=== PATIENT | male | born 1940 | race African-American/Black ===

== ENCOUNTER 2016-10-16 12:29 | Day surgery (SDCO) | payer MEDICARE, OTHER ==
[~2016-10-16] VITALS: Ht 180.3 cm; Wt 93.2 kg
[2016-10-16 14:27] LABS: BASOPHIL 0.3 % (0-2); EOSINOPHIL 0.7 % (0-7); HCT 25.9 % (42.0-52.0); HGB 7.8 g/dl (13.2-18.0); LYMPHOCYTE 13.1 % (15-48); MCH 18.7 pg (25.0-31.0); MCHC 30.1 g/dL (32.0-36.0); MCV 62.1 fL (78.0-100.0); MONOCYTE 12.8 % (0-12); MPV 8.4 fL (6.0-9.5); NEUTROPHIL 73.1 % (41-80); PLT 878 K/uL (150-400); RBC 4.17 M/uL (4.70-6.00); RDW 20.5 % (11.5-14.0); RETICULOCYTE COUNT 1.4 % (1.0-2.0); WBC 11.3 K/uL (4.0-10.5)
[2016-10-16 14:50] LABS: ALBUMIN 3.2 g/dL (3.4-4.8); BILIRUBIN - TOTAL 0.4 mg/dL (0.1-1.0); CREATININE 1.6 mg/dL (0.7-1.2); MAGNESIUM 1.96 mg/dL (1.40-2.10); POTASSIUM 4.1 mmol/L (3.5-5.1); TOTAL PROTEIN 7.2 g/dL (6.4-8.3)
[2016-10-16 14:51] LABS: IRON 14 ug/dL (44-196); IRON % SATURATION 4 %SAT (20-50); TIBC (TOTAL IRON + UIBC) 354 U/L (228-428); UIBC 340 ug/dL (112-346)
[2016-10-16 15:04] LABS: FOLIC ACID (SERUM) > 20.0 ng/mL (5.6-45.8)
[2016-10-16 15:26] LABS: INR 1.13 (0.9-1.2); PROTHROMBIN TIME 14.1 SECONDS (11.7-14.0); PTT 32.8 SECONDS (23.2-31.4)
[2016-10-16 15:27] LABS: BASOPHIL(M) 2 % (0-2); EOSINOPHIL(M) 2 % (0-7); LYMPHOCYTE(M) 12 % (15-48); MONOCYTE(M) 10 % (0-12); NEUTROPHILS(M) 74 % (41-80)
[2016-10-16 16:29] LABS: PLATELET ESTIMATE INCREASED; PLATELET MORPHOLOGY NORMAL
[2016-10-16 16:30] LABS: POIKILOCYTOSIS SLIGHT
[2016-10-16 18:41] LABS: BILIRUBIN NEGATIVE (NEGATIVE); BLOOD NEGATIVE Ery/uL (NEGATIVE); CLARITY CLEAR (CLEAR); COLOR YELLOW (YELLOW); GLUCOSE (U) NORMAL (NORMAL); KETONE (U) NEGATIVE (NEGATIVE); LEUKOCYTES NEGATIVE Leu/uL (NEGATIVE); NITRITE NEGATIVE (NEGATIVE); PROTEIN NEGATIVE (NEGATIVE); SPECIFIC GRAVITY <=1.005 (1.001-1.030); UROBILINOGEN 0.2 mg/dL (0.2-1.0); pH 6.5 (5.0-9.0)
[2016-10-16 18:43] LABS: SQUAMOUS EPITHELIAL CELLS RARE
[2016-10-17 05:18] LABS: HCT 27.3 % (42.0-52.0); HGB 8.5 g/dl (13.2-18.0); MCH 19.7 pg (25.0-31.0); MCHC 31.1 g/dL (32.0-36.0); MCV 63.2 fL (78.0-100.0); MPV 8.3 fL (6.0-9.5); RBC 4.32 M/uL (4.70-6.00); RDW 21.5 % (11.5-14.0); WBC 10.7 K/uL (4.0-10.5)
[2016-10-17 05:33] LABS: CREATININE 1.4 mg/dL (0.7-1.2); POTASSIUM 4.2 mmol/L (3.5-5.1)
[2016-10-17] MEDS ORDERED: TOPROL XL 25MG25 MG PO (18:55)
[2016-10-17] MEDS ORDERED: ULORIC40 MG PO (18:55)
[2016-10-17] MEDS ORDERED: 24HOUR ALLERGY10 MG PO (18:55)
[2016-10-17] MEDS ORDERED: BENICAR40 MG PO (18:55)
[2016-10-17] MEDS ORDERED: BENADRYL25 MG PO (18:56)
[2016-10-17] MEDS ORDERED: COLCRYS0.6 MG PO (18:56)
[2016-10-17] MEDS ORDERED: NORVASC5 MG PO (18:56)
[2016-10-17] MEDS ORDERED: LIPITOR20 MG PO (18:56)
[2016-10-17] MEDS ORDERED: ZANTAC150 MG PO (18:56)
[2016-10-17] MEDS ORDERED: SINGULAIR10 MG PO (18:56)
[2016-10-17] MEDS ORDERED: ASPIRIN EC81 MG PO (18:56)
== END 2016-10-17 18:55 | disposition home or self-care (01) ==
LOC: FMS 12:29
PROVIDERS: Nurse Practitioner; ADMIT Internal Medicine
DX: D50.9 Iron deficiency anemia, unspecified (principal); I12.9 Hypertensive chronic kidney disease with stage 1 through stage 4 chronic kidney disease, or unspecified chronic kidney disease; N18.3 Chronic kidney disease, stage 3 (moderate); I25.10 Atherosclerotic heart disease of native coronary artery without angina pectoris; E78.5 Hyperlipidemia, unspecified; K21.9 Gastro-esophageal reflux disease without esophagitis; J45.909 Unspecified asthma, uncomplicated; M10.9 Gout, unspecified; M19.90 Unspecified osteoarthritis, unspecified site; F17.290 Nicotine dependence, other tobacco product, uncomplicated; Z88.0 Allergy status to penicillin; Z88.6 Allergy status to analgesic agent; Z83.3 Family history of diabetes mellitus; Z79.82 Long term (current) use of aspirin; Z79.899 Other long term (current) drug therapy
CPT/HCPCS: 36415; 36430; 71010; 80048; 80053; 81001; 82607; 82728; 82746; 83540; 83550; 83615; 83735; 84145; 84484; 85044; 85610; 85730; 86850; 86900; 86901; 86922; 87040; 93005; G0378; J1940; J2916; J3420; P9016

== ENCOUNTER 2020-06-11 19:26 | Emergency (ER) | payer MEDICARE ==
[~2020-06-11 19:26] MED LIST: 24HOUR ALLERGY10 MG PO; ALLOPURINOL100 MG PO; ARAVA20 MG PO; ASPIRIN EC81 MG PO; BENADRYL25 MG PO; BENICAR40 MG PO; COLCRYS0.6 MG PO; DIOVAN320 MG PO; ECOTRIN81 MG PO; FOSAMAX70 MG PO; LIPITOR20 MG PO; MAG-OXIDE 400M400 MG PO; NORVASC5 MG PO; PREDNISONE 1MG T1 MG PO; PROTONIX 40MG T40 MG PO; SINGULAIR10 MG PO; TOPROL XL 25MG25 MG PO; ULORIC40 MG PO; ZANTAC150 MG PO
== END 2020-06-11 20:30 | disposition home or self-care (01) ==
LOC: FER 19:26
DX: I10 Essential (primary) hypertension (principal); K21.9 Gastro-esophageal reflux disease without esophagitis; E78.5 Hyperlipidemia, unspecified; M10.9 Gout, unspecified; F17.290 Nicotine dependence, other tobacco product, uncomplicated; Z88.0 Allergy status to penicillin; Z88.6 Allergy status to analgesic agent; Z79.899 Other long term (current) drug therapy
CPT/HCPCS: 99283

== ENCOUNTER 2020-06-13 19:29 | Emergency (ER) | payer MEDICARE ==
[2020-06-13 20:06] LABS: INR 0.99 (0.9-1.2); PROTHROMBIN TIME 12.4 SECONDS (11.4-13.6); PTT 20.3 SECONDS (22.2-34.7)
[2020-06-13 20:08] LABS: EOSINOPHIL 3.6 % (0-7); HCT 35.4 % (42.0-52.0); HGB 10.6 g/dl (13.2-18.0); LYMPHOCYTE 25.9 % (15-48); MCH 24.5 pg (25.0-31.0); MCHC 29.9 g/dL (32.0-36.0); MCV 81.8 fL (78.0-100.0); MONOCYTE 15.3 % (0-12); NRBC 0; PLT 224 K/uL (150-400); RBC 4.33 M/uL (4.70-6.00); RDW 19.1 % (11.5-14.0); WBC 5.9 K/uL (4.0-10.5)
[2020-06-13 20:16] LABS: ALBUMIN 3.4 g/dL (3.4-5.0); BILIRUBIN - TOTAL 0.3 mg/dL (0.2-1.0); BUN/CREAT RATIO (CALC) 9.8 RATIO; CREATININE 1.12 mg/dL (0.67-1.17); GLOBULIN (CALCULATION) 3.1 g/dL; POTASSIUM 3.3 mmol/L (3.5-5.1); TOTAL PROTEIN 6.5 g/dL (6.4-8.2)
[2020-06-13 20:22] LABS: PRO-BNP 662 pg/mL (<450)
== END 2020-06-14 03:19 | disposition home or self-care (01) ==
LOC: FER 19:29
PROVIDERS: Emergency Medicine Emergency Medical Services
DX: R07.9 Chest pain, unspecified (principal); I45.10 Unspecified right bundle-branch block; R60.0 Localized edema; I48.91 Unspecified atrial fibrillation; I11.0 Hypertensive heart disease with heart failure; I50.9 Heart failure, unspecified; F17.200 Nicotine dependence, unspecified, uncomplicated; Z88.0 Allergy status to penicillin; Z88.6 Allergy status to analgesic agent; Z20.822 Contact with and (suspected) exposure to COVID-19
CPT/HCPCS: 36415; 71045; 80053; 83880; 84145; 84484; 85025; 85610; 85730; 93005; J1940; U0002

== ENCOUNTER 2021-08-17 16:03 | Emergency (ER) | payer MEDICARE ==
[~2021-08-17 16:03] MED LIST changes: +COZAAR100 MG PO; +ELIQUIS5 MG PO; +FOLIC ACID1 MG PO; +NASAL SPRAY; +PEPCID AC20 MG PO
== END 2021-08-17 16:45 | disposition home or self-care (01) ==
LOC: FER 16:03
DX: I10 Essential (primary) hypertension (principal); F17.200 Nicotine dependence, unspecified, uncomplicated; Z88.0 Allergy status to penicillin; Z88.6 Allergy status to analgesic agent
CPT/HCPCS: 99283

== ENCOUNTER 2021-08-18 17:40 | Emergency (ER) | payer MEDICARE | END 2021-08-18 18:56 | disposition home or self-care (01) | LOC: FER 17:40 | DX: I10 Essential (primary) hypertension (principal); F17.200 Nicotine dependence, unspecified, uncomplicated; Z88.0 Allergy status to penicillin; Z88.6 Allergy status to analgesic agent | CPT/HCPCS: 99283 ==

== ENCOUNTER 2022-02-07 12:05 | Emergency (ER) | payer MEDICARE ==
[2022-02-07 12:48] LABS: BASOPHIL 0.5 % (0-2); EOSINOPHIL 0.1 % (0-7); HCT 26.7 % (42.0-52.0); HGB 7.8 g/dl (13.2-18.0); LYMPHOCYTE 6.3 % (15-48); MCH 23.1 pg (25.0-31.0); MCHC 29.2 g/dL (32.0-36.0); MONOCYTE 1.5 % (0-12); MPV 8.5 fL (6.0-9.5); NEUTROPHIL 91.1 % (41-80); NRBC 0.2; PLT 260 K/uL (150-400); RBC 3.38 M/uL (4.70-6.00); RDW 20.2 % (11.5-14.0)
[2022-02-07 12:55] LABS: WBC 8.1 K/uL (4.0-10.5)
[2022-02-07 13:19] LABS: ALBUMIN 3.2 g/dL (3.4-5.0); BILIRUBIN - TOTAL 0.3 mg/dL (0.2-1.0); BUN/CREAT RATIO (CALC) 21.5 RATIO; CREATININE 1.35 mg/dL (0.67-1.17); GLOBULIN (CALCULATION) 3.8 g/dL; POTASSIUM 4.9 mmol/L (3.5-5.1)
[2022-02-07 13:26] LABS: CLARITY CLEAR (CLEAR); COLOR YELLOW (YELLOW); GLUCOSE (U) NORMAL (NORMAL); PROTEIN NEGATIVE (NEGATIVE)
[2022-02-07 13:27] LABS: BILIRUBIN NEGATIVE (NEGATIVE); BLOOD NEGATIVE Ery/uL (NEGATIVE); LEUKOCYTES NEGATIVE Leu/uL (NEGATIVE); NITRITE NEGATIVE (NEGATIVE); UROBILINOGEN 0.2 mg/dL (0.2-1.0)
[2022-02-07 13:34] LABS: LACTIC ACID 1.3 mmol/L (0.4-1.9)
[2022-02-07 13:48] LABS: CORONAVIRUS 2019 SARS-COV-2 NEGATIVE (NEGATIVE); INFLUENZA A NAA NEGATIVE (NEGATIVE)
[2022-02-08 11:45] LABS: RETICULOCYTE COUNT 3.2 % (1.0-2.0)
[2022-02-08 12:57] LABS: FOLIC ACID (SERUM) 88.2 ng/mL (8.6-58.9)
== END 2022-02-07 17:06 | disposition home or self-care (01) ==
LOC: FER 12:05
PROVIDERS: Internal Medicine Hematology & Oncology; Nurse Practitioner Family
DX: D64.9 Anemia, unspecified (principal); J43.9 Emphysema, unspecified; I12.9 Hypertensive chronic kidney disease with stage 1 through stage 4 chronic kidney disease, or unspecified chronic kidney disease; N18.9 Chronic kidney disease, unspecified; Z88.0 Allergy status to penicillin; Z88.6 Allergy status to analgesic agent; F17.290 Nicotine dependence, other tobacco product, uncomplicated; Z20.822 Contact with and (suspected) exposure to COVID-19
CPT/HCPCS: 36415; 71046; 80053; 81003; 82607; 82728; 82746; 83540; 83550; 83605; 84145; 84484; 85025; 87040; 93005; J7030; U0002